=== PATIENT | male | born 1945 | race African-American/Black ===

== ENCOUNTER 2016-12-11 13:33 | Emergency (ER) | payer OTHER ==
[~2016-12-11] VITALS: Ht 182.9 cm; Wt 79.8 kg
--- NOTE | ~2016-12-11 | EKG ---
[address] [address] ELECTROCARDIOGRAM REPORT Name: ROSEMARY ROBIN [id number] Admission: 12/11/16 Attend Phys: Discharge: 12/11/16 Date of : 49 Report #: [id number] THIS REPORT FOR: //name// [facility] ED Test Date: 2016-12-11 Test Time: 13:59:19 Pat Name: ROSEMARY ORBIN Department: Room: Gender: [employer] Operator: KELECHI : 1945 Requested By: Nils Sagastume Order Number: [id number] MD: Moreno Ivan Measurements Intervals [place] Rate: 51 P: 61 OR: 150 QRS: 47 QRSD: 97 T: 37 QT: 437 QTc: 403 Interpretive Statements Sinus rhythm No previous ECG available for comparison Electronically Signed On 12-13-2016 22:08:30 CDT by Moreno Ivan [email or web address] <ELECTRONICALLY SIGNED> By: Moreno Ivan MD 12/13/16 [id number] Moreno Ivan MD /NACHO
[2016-12-11 13:57] LABS: ABSOLUTE NEUTROPHILS 3.4 thou/uL (1.4-8.2); EOSINOPHILS 0.6 % (0.0-3.0); HEMATOCRIT 44.9 % (42.0-52.0); HEMOGLOBIN 15.2 gm/dL (14.0-18.0); LYMPHOCYTES 29.6 % (24.0-44.0); MCH 30.7 pg (26.0-34.0); MCHC 33.8 g/dL (28.0-37.0); MONOCYTES 8.7 % (1.0-8.0); PLATELET COUNT 216 thou/uL (150-400); POLYS 60.1 % (36.0-66.0); RBC 4.94 mil/uL (4.50-6.00); RDW 13.6 % (10.5-14.5); WBC 5.7 thou/uL (4.0-11.0)
[2016-12-11 13:58] LABS: MANUAL DIFF NO
[2016-12-11 14:06] LABS: ANION GAP 9 mmol/L (7-16); BUN 14 mg/dL (7-18); CALCIUM 9.1 mg/dL (8.5-10.1); CHLORIDE 108 mmol/L (98-107); CO2 25 mmol/L (21-32); CREATININE 1.1 mg/dL (0.7-1.3); GLUCOSE 108 mg/dL (74-106); POTASSIUM 3.4 mmol/L (3.5-5.1); SODIUM 142 mmol/L (136-145)
[2016-12-11 14:13] LABS: ALBUMIN 4.2 g/dL (3.4-5.0); ALKALINE PHOSPHATASE 64 U/L (46-116); DIRECT BILIRUBIN 0.2 mg/dL (<0.1-0.3); SGOT 20 U/L (15-37); SGPT 27 U/L (30-65); TOTAL BILIRUBIN 1.3 mg/dL (<0.1-1.0); TOTAL PROTEIN 7.4 g/dL (6.4-8.2); TROPONIN-I < 0.04 ng/mL (<0.04-0.07)
[2016-12-11] MEDS ORDERED: ONDANSETRON HCL4 M2 PO (18:07)
[2016-12-11 18:25] VITALS: BP 130/88
== END 2016-12-11 18:25 | disposition home or self-care (01) ==
LOC: ER 13:33
PROVIDERS: Nurse Practitioner
DX: R42 Dizziness and giddiness (principal); R11.2 Nausea with vomiting, unspecified